=== PATIENT | female | born 2005 | race Caucasian/White ===

== ENCOUNTER 2025-02-23 17:26 | Emergency (ER) | payer MEDICAID ==
[~2025-02-23] VITALS: Ht 170.2 cm; Wt 81.0 kg
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
[2025-02-23 21:12] VITALS: BP 110/72; PULSE 99; RESP 18; TEMP 98.6; O2SAT 99
== END 2025-02-23 21:27 | disposition home or self-care (01) ==
LOC: ER 17:29
DX: G89.29 Other chronic pain (principal); M25.511 Pain in right shoulder; Z32.02 Encounter for pregnancy test, result negative
CPT/HCPCS: 36415; 73030; 84702; 99284

== ENCOUNTER 2025-02-27 13:49 | Emergency (ER) | payer MEDICAID ==
[~2025-02-27] VITALS: Ht 167.6 cm; Wt 78.6 kg
[2025-02-27 14:28] LABS: MEAN PLATELET VOLUME 8.7 FL (7.4-10.4); RED CELL DISTRIBUTION WIDTH 13.1 % (11.5-14.5)
[2025-02-27 15:16] VITALS: BP 108/80; PULSE 99; RESP 18; TEMP 97.8; O2SAT 97
[2025-02-27 15:39] LABS: LEUKOCYTE ESTERASE ,URINE TRACE (Neg); NITRITES, URINE NEGATIVE (Neg); OCCULT BLOOD,URINE MODERATE (Neg)
[2025-02-27 15:40] LABS: UA COLLECTION TYPE CLN CATCH MIDSTREAM
[2025-02-27 15:46] LABS: SQUAMOUS EPITHELIAL CELL,UR MODERATE /LPF (FEW)
--- NOTE | 2025-02-27 15:58 | Physician Documentation ---
History of Present Illness ~ Chief Complaint: Vaginal Bleeding Stated Complaint: VAGINAL BLEEDING POSS PREG Time Seen by MD: 16:00 HPI This is a 20-year-old female who presents back to the emergency department after reportedly being previously seen and receiving a beta hCG test that was inconclusive. Patient reports last menstrual period January 14. Patient reports that starting last night she had some intermittent vaginal bleeding and spotting without pain. Patient does report occasional dysuria though no abdominal pain. Patient reports no other acute symptoms or concerns. Medication Reconciliation Allergies: Coded Allergies: No Known Allergies (Unverified , 02/23/25) Scheduled Cephalexin*Monohydrate* (Keflex*), 1 CAP PO QID Clotrimazole (3-Day Vaginal Cream), 1 APPLICATOR VG HS Past Medical History Past Medical History: No Pertinent History Review of Systems ROS As stated above in the HPI, otherwise all systems are reviewed and negative. Physical Exam Vital Signs: Temperature: 97.8, Heart Rate: 99, Respiratory Rate: 18, BP: 108/80, Pulse Oximetry: 97, Weight: 78.640 Oxygen Flow Rate: 0 Physical Exam VITALS: Reviewed and as above. GENERAL: Alert, nontoxic appearing, no apparent distress. RESPIRATORY: No increased work of breathing, no respiratory distress, speaking in full clear sentences Progress Results/Orders Results/Orders Vital Signs 02/27/25 15:16 Temp 97.8 Pulse 99 Resp 18 B/P (MAP) 108/80 Pulse Ox 97 O2 Flow Rate 0 Laboratory Tests Test 02/27/25 14:17 02/27/25 15:03 White Blood Count 8.1 Red Blood Count 4.57 Hemoglobin 14.1 Hematocrit 41.1 Mean Corpuscular Volume 89.9 Mean Corpuscular Hemoglobin 30.8 Mean Corpuscular Hemoglobin Concent 34.2 Red Cell Distribution Width 13.1 Platelet Count 198 Mean Platelet Volume 8.7 Neutrophils (%) (Auto) 84.2 H Lymphocytes (%) (Auto) 10.6 L Monocytes (%) (Auto) 4.5 Eosinophils (%) (Auto) 0.4 Basophils (%) (Auto) 0.3 Neutrophils # (Auto) 6.8 Lymphocytes # (Auto) 0.9 L Monocytes # (Auto) 0.4 Eosinophils # (Auto) 0.0 Basophils # (Auto) 0.0 CBC Comment HCG Beta Subunit < 1.0 Urine Specimen Description Cln catch midstream Urine Color [place] Urine Clarity Turbid Urine pH 5.5 Urine Specific [place] 1.025 Urine Protein 30 H Urine Glucose (UA) Negative Urine Ketones Trace H Urine Occult Blood Moderate H Urine Nitrite Negative Urine Bilirubin Small Urine Urobilinogen 0.2 Urine Leukocyte Esterase Trace H Urine RBC Tntc Urine WBC 5-10 H Urine Squamous Epithelial Cells Moderate Urine Bacteria 3+ Urine Culture Indicated Indicated Volume Urine Centrifuged 10 ml Urine Comment Microbiology Date/Time Source Procedure Growth Status 02/27/25 15:48 Urine Clean Catch Midstream Urine Culture - Preliminary NO GROWTH AFTER 1 DAY Resulted Medical Decision Making Findings This 20-year-old female presented requesting recheck of hCG due to in conclusive test at last visit, patient reports some bleeding and spotting starting last night which may represent beginning her menstrual period, hCG was negative today though urinalysis demonstrated evidence of urinary tract infection, given patient's report of occasional dysuria we will treat for urinary tract infection. Patient is otherwise well-appearing reporting no other acute symptoms or concerns and appropriate for outpatient follow up. Home care instructions, follow up instructions, return precautions discussed with the patient who verbalized understanding. Genital Diff Dx:Considerations: Include: -Complete, -Inco mplete, -Inevitable, Ablortion-Missed, -Threatened, Blood loss anemia, Ectopic , Hormonal, Intrauterine , Menorrhagia, Menometrorrhagia, Menstrual bleeding, Myomatous uterus, Perianal abscess, Physiologic discharge, PID, UTI Departure Time of Disposition: 16:14 Disposition: 01 HOME / SELF CARE / HOMELESS Impression: Primary Impression: Urinary tract infection Qualified Codes: N39.0 - Urinary tract infection, site not specified Additional Impression: Negative test Condition: Improved Discharge Instructions: Urinary Tract Infection, Adult Additional Instructions: Please take the antibiotics as prescribed, if you develop a yeast infection I have also prescribed you a cream you can use. Please follow up with your primary care provider in the next few days. Please return to the emergency department for any new or worsening concerning symptoms. Referrals: NO PRIMARY CARE PROVIDER (PCP) Prescriptions Clotrimazole (3-Day Vaginal Cream) 2 % Cream.appl 1 APPLICATOR VG HS for 3 Days, #21 GM Prov: LEIGHTON LUCAS 02/27/25 Cephalexin*Monohydrate* (Keflex*) 500 Mg Capsule 1 CAP PO QID for 5 Days, #20 CAP Prov: LEIGHTON LUCAS 02/27/25 Education Educated: Patient Educated regarding: diagnosis, treatment, prognosis, need for follow up Signature Scribe Signature: No scribe Attestation: The note accurately reflects work and decisions made by me.GILBERT Lama 02/28/25 17:45 LEIGHTON LUCAS Feb 27, 2025 15:57
[2025-02-27] MEDS ORDERED: CEPH-585 PO (16:25)
[2025-02-27] MEDS ORDERED: CLOT21CR12 VG (16:25)
== END 2025-02-27 16:59 | disposition home or self-care (01) ==
LOC: ER 13:50
DX: N39.0 Urinary tract infection, site not specified (principal); Z32.02 Encounter for pregnancy test, result negative; Z79.899 Other long term (current) drug therapy
CPT/HCPCS: 36415; 81001; 84702; 85025; 86900; 86901; 87088; 99283

== ENCOUNTER 2025-03-03 21:24 | Emergency (ER) | payer MEDICAID ==
[~2025-03-03] VITALS: Ht 167.6 cm; Wt 79.4 kg
[~2025-03-03 21:24] MED LIST: CEPH-585 PO; CLOT21CR12 VG
[2025-03-03 21:55] LABS: MEAN PLATELET VOLUME 8.8 FL (7.4-10.4); RED CELL DISTRIBUTION WIDTH 13.2 % (11.5-14.5)
[2025-03-03 22:08] LABS: CREATININE 0.85 MG/DL (0.40-0.90); TOTAL CARBON DIOXIDE 27.4 MMOL/L (24-32); eCRCL 99 ML/MIN; eGFR 85 ML/MIN
[2025-03-03 22:08] LABS: URINE HCG NEGATIVE (NEG)
[2025-03-03 22:32] LABS: LEUKOCYTE ESTERASE ,URINE NEGATIVE (Neg); NITRITES, URINE NEGATIVE (Neg); OCCULT BLOOD,URINE NEGATIVE (Neg)
[2025-03-03 22:40] LABS: UA COLLECTION TYPE CLN CATCH MIDSTREAM
[2025-03-03] MEDS: ketorolac trometh 30MG/ML vial 30 MG/ML VIAL IM STA (22:41)
[2025-03-03] MEDS ORDERED: MELO-102 PO (23:23)
--- NOTE | 2025-03-03 23:23 | Physician Documentation ---
History of Present Illness ~ Chief Complaint: Back Pain Stated Complaint: BACK PAIN/NAUSEA Time Seen by MD: 22:19 HPI Patient is seen today with complaints of pain of her lower back. Patient states he is currently on Keflex treating a UTI and states those symptoms are improving significantly. Patient states she recently started a job as a [employer] and is bending down and lifting heavy objects frequently. 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 Patient denies any fevers or chills and has no other concern or complaint at this time. Medication Reconciliation Allergies: Coded Allergies: No Known Allergies (Unverified , 02/23/25) Scheduled Cephalexin*Monohydrate* (Keflex*), 1 CAP PO QID Discontinued Medications Clotrimazole (3-Day Vaginal Cream), 1 APPLICATOR VG HS Discontinued Reason: Auto Discontinued Past Medical History Past Medical History: No Pertinent History Review of Systems Constitutional: Denies: chills, fever, weakness Eyes: Denies: pain, blurred vision ENT: Denies: ear pain, nose pain, throat pain, mouth pain Respiratory: Denies: cough, shortness of breath Cardiovascular: Denies: chest pain, palpitations Gastrointestinal: Denies: abdominal pain, nausea, vomiting Genitourinary: Denies: burning, dysuria Female Genitalia: Denies: vaginal discharge, pelvic pain Neurological: Denies: headache, dizziness Musculoskeletal: Denies: pain, swelling Integumentary: Denies: rash, lesions Allergic/Immunologic: Denies: hives, itching Hematologic/Lymphatic: Denies: no symptoms reported Psychiatric: Denies: depression, anxiety Physical Exam Physical Exam Vital Signs: Temperature: 97.6, Source: Oral, Heart Rate: 89, Respiratory Rate: 16, BP: 111/76, Pulse Oximetry: 100, Weight: 79.410 Oxygen Flow Rate: 0 Progress Results/Orders Results/Orders Completed Orders - SUZANNE LOFTON Ketorolac Trometh 30mg/Ml Vial (Toradol (03/03/25 22:26) Lidocaine 5% Patch (Lidoderm 5% Patch) (03/03/25 22:48) Medications Received in ER Medications (Trade) Dose Ordered Sig/Lily Route PRN Reason Start Time Stop Time Status Last Admin Dose Admin (Toradol inj. 30mg/ml) 30 mg ONCE STAT IM 03/03/25 22:26 03/03/25 22:28 DC 03/03/25 22:41 30 MG Vital Signs 03/03/25 21:26 Temp 97.6 Pulse 89 Resp 16 B/P (MAP) 111/76 Pulse Ox 100 O2 Flow Rate 0 Laboratory Tests Test 03/03/25 21:33 03/03/25 21:43 Urine Specimen Description Cln catch midstream Urine Color Yellow Urine Clarity Clear Urine pH 6.5 Urine Specific [place] 1.010 Urine Protein Negative Urine Glucose (UA) Negative Urine Ketones Negative Urine Occult Blood Negative Urine Nitrite Negative Urine Bilirubin Negative Urine Urobilinogen 0.2 Urine Leukocyte Esterase Negative Urine Culture Indicated Not ind Volume Urine Centrifuged 10 ml Urine HCG, Qualitative Negative Urine Comment White Blood Count 7.9 Red Blood Count 4.60 Hemoglobin 14.1 Hematocrit 40.9 Mean Corpuscular Volume 88.9 Mean Corpuscular Hemoglobin 30.7 Mean Corpuscular Hemoglobin Concent 34.5 Red Cell Distribution Width 13.2 Platelet Count 237 Mean Platelet Volume 8.8 Neutrophils (%) (Auto) 69.9 Lymphocytes (%) (Auto) 25.4 Monocytes (%) (Auto) 3.5 Eosinophils (%) (Auto) 0.9 Basophils (%) (Auto) 0.3 Neutrophils # (Auto) 5.5 Lymphocytes # (Auto) 2.0 Monocytes # (Auto) 0.3 Eosinophils # (Auto) 0.1 Basophils # (Auto) 0.0 CBC Comment Sodium Level 142 Potassium Level 3.6 Chloride Level 104 Carbon Dioxide Level 27.4 Anion Gap 11 Blood Urea Nitrogen 14 Creatinine 0.85 Estimated GFR/1.73 m2 85 BUN/Creatinine Ratio 16.5 Glucose Level 101 Calcium Level 9.4 Total Bilirubin 0.3 Aspartate Amino Transf (AST/SGOT) 14 Alanine Aminotransferase (ALT/SGPT) 18 Alkaline Phosphatase 63 Total Protein 7.9 Albumin 4.3 Globulin 3.6 Albumin/Globulin Ratio 1.2 Chemistry Comments Medical Decision Making Findings Patient is seen today with complaints of pain of her lower back. Patient states he is currently on Keflex treating a UTI and states those symptoms are improving significantly. Patient states she recently started a job as a [employer] and is bending down and lifting heavy objects frequently. 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 Patient denies any fevers or chills and has no other concern or complaint at this time. Patient was given Toradol 30 mg IM in the ED today along with a lidocaine patch. Patient will be given note for work to be off for one week. Patient will follow up with primary care as soon as possible for referral to physical therapy for further eval and treatment. Return to ED with any worsening, concerning or changing symptoms. Departure Disposition: 01 HOME / SELF CARE / HOMELESS Impression: Primary Impression: Low back pain Qualified Codes: M54.50 - Low back pain, unspecified Condition: Stable Discharge Instructions: Acute Back Pain, Adult Additional Instructions: Patient was given Toradol 30 mg IM in the ED today along with a lidocaine patch. Patient will be given note for work to be off for one week. Patient will follow up with primary care as soon as possible for referral to physical therapy for further eval and treatment. Return to ED with any worsening, concerning or changing symptoms. Departure Forms: Excuse form Work or School Excused From: Work Excuse beginning now through the following date: Mar 10, 2025 Referrals: NO PRIMARY CARE PROVIDER (PCP) Prescriptions Meloxicam (Meloxicam) 15 Mg Tablet 1 TAB PO DAILY for 15 Days, #15 TAB 0 Refills Prov: SUZANNE LOFTON 03/03/25 Signature Scribe Signature: No scribe Attestation: No scribe SUZANNE LOFTON Mar 03, 2025 23:23
[2025-03-03 23:31] VITALS: BP 113/78; PULSE 82; RESP 18; TEMP 98.6; O2SAT 99
== END 2025-03-03 23:32 | disposition home or self-care (01) ==
LOC: ER 21:25
DX: M54.50 Low back pain, unspecified (principal)
CPT/HCPCS: 36415; 80053; 81003; 81025; 85025; 96372; 99283; J1885

== ENCOUNTER 2025-04-28 15:59 | Emergency (ER) | payer MEDICAID ==
[~2025-04-28] VITALS: Ht 167.6 cm; Wt 79.1 kg
[~2025-04-28 15:59] MED LIST changes: -CEPH-585 PO; -CLOT21CR12 VG; +MELO-102 PO
[2025-04-28 16:03] VITALS: TEMP 98.5
--- NOTE | 2025-04-28 16:29 | RADIOLOGY REPORT ---
CLINICAL INDICATION: SHOULDER PAIN RIGHT TECHNIQUE: DI SHOULDER, COMPLETE (MIN 2 VWS) Comparison: DI WRIST, COMPLETE (3VW MIN) on DOS: 04/28/25, DI SHOULDER, COMPLETE (MIN 2 VWS) on DOS: 02/23/25, XR KNEE 3 VIEWS LT on DOS: 02/09/22 FINDINGS/IMPRESSION: : There is no evidence of acute fracture or dislocation. Soft tissues are unremarkable.
--- NOTE | 2025-04-28 16:30 | RADIOLOGY REPORT ---
CLINICAL INDICATION: RIGHT WRIST PAIN TECHNIQUE: Right DI WRIST, COMPLETE (3VW MIN) Comparison: DI SHOULDER, COMPLETE (MIN 2 VWS) on DOS: 04/28/25, DI SHOULDER, COMPLETE (MIN 2 VWS) on DOS: 02/23/25, XR KNEE 3 VIEWS LT on DOS: 02/09/22 FINDINGS/IMPRESSION: : There is no evidence of acute fracture or dislocation. Soft tissues are unremarkable.
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
[2025-04-28] MEDS: ketorolac trometh 30MG/ML vial 30 MG/ML VIAL IM ONE (18:00)
[2025-04-28 18:05] VITALS: BP 128/77; PULSE 87; RESP 18; O2SAT 98
== END 2025-04-28 18:08 | disposition home or self-care (01) ==
LOC: ER 16:00
DX: S40.011A Contusion of right shoulder, initial encounter (principal); Z79.899 Other long term (current) drug therapy; Y04.8XXA Assault by other bodily force, initial encounter; Y93.89 Activity, other specified; Y92.89 Other specified places as the place of occurrence of the external cause; Y99.8 Other external cause status
CPT/HCPCS: 73030; 73110; 99284; J1885

== ENCOUNTER 2025-05-01 10:24 | Emergency (ER) | payer MEDICAID ==
[~2025-05-01] VITALS: Ht 167.6 cm; Wt 78.5 kg
--- NOTE | 2025-05-01 10:50 | Physician Documentation ---
History of Present Illness ~ Chief Complaint: Complications Stated Complaint: PREG COMPLICATIONS Time Seen by MD: 10:50 Primary Medical Doctor: Emigdio Blanco HPI 20-year-old female presents to the emergency department reporting that her last period was 02/26/2025. No care. Today she presents due to pelvic cramping. Denies chills or fever, vaginal discharge, vaginal bleeding. Medication Reconciliation Allergies: Coded Allergies: No Known Allergies (Unverified , 04/28/25) Scheduled Meloxicam (Meloxicam), 1 TAB PO DAILY Past Medical History Past Medical History: No Pertinent History Review of Systems ROS As stated above in the HPI, otherwise all systems are reviewed and negative. Physical Exam Physical Exam Vital Signs: Temperature: 98.0, Source: Temporal, Heart Rate: 95, Respiratory Rate: 16, BP: 111/66, Pulse Oximetry: 96, Weight: 78.500 Oxygen Flow Rate: 0 Physical Exam General: Alert, no apparent distress. Neck: Full range of motion. Respiratory: Lungs clear, no respiratory distress. Chest: No accessory muscle use. Cardiovascular: Regular rate and rhythm, no murmurs. Gastrointestinal: Soft, nontender, nondistended. Bowels sounds present. Extremities: Normal range of motion, no deformity. Neurologic: Oriented x4. Psychiatric: Normal mood and affect. Skin: Normal color, warm and dry. No edema, no ecchymosis. Progress Progress Note 12 40: dietetic technician reports positive flow to both ovaries, thickened endometrium, no pole or sac. Results/Orders Results/Orders Orders - RICK HARP [employer] CONSULTANT US OB (05/01/25 ) Completed Orders - RICK HARP [employer] SERVICE CONSULTANT Hcg Serum Qt (05/01/25 10:49) Cbc/Diff (05/01/25 10:49) Abo/Rh (05/01/25 10:49) Ua W/Microscopic, Cult If Ind (05/01/25 12:05) Vital Signs 05/01/25 10:39 Temp 98.0 Pulse 95 Resp 16 B/P (MAP) 111/66 Pulse Ox 96 O2 Flow Rate 0 Laboratory Tests Test 05/01/25 11:04 05/01/25 12:05 White Blood Count 6.3 Red Blood Count 4.13 L Hemoglobin 12.8 Hematocrit 36.9 Mean Corpuscular Volume 89.5 Mean Corpuscular Hemoglobin 31.1 H Mean Corpuscular Hemoglobin Concent 34.7 Red Cell Distribution Width 13.3 Platelet Count 208 Mean Platelet Volume 8.5 Neutrophils (%) (Auto) 75.0 Lymphocytes (%) (Auto) 18.5 L Monocytes (%) (Auto) 5.5 Eosinophils (%) (Auto) 0.7 Basophils (%) (Auto) 0.3 Neutrophils # (Auto) 4.7 Lymphocytes # (Auto) 1.2 Monocytes # (Auto) 0.3 Eosinophils # (Auto) 0.0 Basophils # (Auto) 0.0 CBC Comment HCG Beta Subunit 243 Urine Specimen Description Cln catch midstream Urine Color Straw Urine Clarity Cloudy Urine pH 7.0 Urine Specific Carson <=1.005 Urine Protein Negative Urine Glucose (UA) Negative Urine Ketones Negative Urine Occult Blood Negative Urine Nitrite Negative Urine Bilirubin Negative Urine Urobilinogen 0.2 Urine Leukocyte Esterase Negative Urine RBC None seen Urine WBC 0-4 Urine Squamous Epithelial Cells Many Urine Transitional Epithelial Cells Few Urine Renal Cells Moderate Urine Bacteria 1+ Urine Culture Indicated Not ind Volume Urine Centrifuged 10 ml Urine Comment Medical Decision Making Additional information obtaine: old records Findings Was last seen April 28, 2025 for shoulder pain. Differential Dx:Considerations: Include: -complete, - incomplete, -inevitable, -missed, -threatened, Abruptio placentae, Active labor-term, Active labor-, Appendicitis, Lamb-Renteria contraction, Cystitis: Acute, Discomfort of , Ectopic , Ectopic preg.-ruptured, demise, Placenta previa, Pyelonephritis: Acute, Ruture of membranes, Third trimester bleeding, UTI, Vaginal bleeding, Vaginal delivery Additional Comment This appears to be in the very early stages of , less than one month. She is to be discharged home and follow up with her primary care requesting an OB referral. Departure Time of Disposition: 12:48 Disposition: 01 HOME / SELF CARE / HOMELESS Impression: Primary Impression: First trimester Condition: Stable Discharge Instructions: First Trimester of Additional Instructions: Blood work and ultrasound indicate a very early at less than one month. Urinalysis did not show signs of infection. Please establish with a gynecologic provider. This may require a referral from your primary care. Return with any emergent concerns such as severe bleeding, fever over 101, any other emergent issues. Referrals: NO PRIMARY CARE PROVIDER (PCP) Education Educated: Patient, Family Educated regarding: diagnosis, treatment, prognosis, need for follow up Signature Scribe Signature: x Attestation: The note accurately reflects work and decisions made by me.Rick Mathew NP 05/01/25 11:04 RICK HARP NP May 01, 2025 10:50
[2025-05-01 11:18] LABS: MEAN PLATELET VOLUME 8.5 FL (7.4-10.4); RED CELL DISTRIBUTION WIDTH 13.3 % (11.5-14.5)
[2025-05-01 12:28] LABS: LEUKOCYTE ESTERASE ,URINE NEGATIVE (Neg); NITRITES, URINE NEGATIVE (Neg); OCCULT BLOOD,URINE NEGATIVE (Neg)
[2025-05-01 12:37] LABS: SQUAMOUS EPITHELIAL CELL,UR MANY /LPF (FEW); UA COLLECTION TYPE CLN CATCH MIDSTREAM
[2025-05-01 12:38] LABS: RENAL CELLS, URINE MODERATE /HPF
[2025-05-01 13:16] VITALS: BP 106/65; PULSE 107; RESP 16; TEMP 98.6; O2SAT 100
--- NOTE | 2025-05-01 13:18 | RADIOLOGY REPORT ---
OB ULTRASOUND <14 WEEKS: HISTORY: cramping, TECHNIQUE: Multiple real-time grayscale sonographic images of the pelvis with duplex Doppler color flow, spectral and M-mode analysis. TRANSDUCERS: TRANSABDOMINAL AND TRANSVAGINAL FINDINGS: The uterus measures 7.4 X 3.0 X 4.3 CM. The cervix not well visualized. Right ovary measures 2.5 x 1.4 x 3.1 cm with normal Doppler color flow Left ovary measures 2.7 x 2.0 x 3.3 cm with normal Doppler color flow No intrauterine visualized at this time. IMPRESSION: Thickened endometrium, without visualized gestational sac, pole or cardiac activity. Differential considerations include early, normal intrauterine , an anembryonic and spontaneous . Recommend correlation with follow-up beta hCG levels. Repeat ultrasound could be performed if clinically indicated.
== END 2025-05-01 13:28 | disposition home or self-care (01) ==
LOC: ER 10:24
DX: O26.891 Other specified pregnancy related conditions, first trimester (principal)
CPT/HCPCS: 36415; 76801; 76817; 81001; 84702; 85025; 86900; 86901; 93976; 99284